=== PATIENT | male | born 1990 | race Caucasian/White ===

== ENCOUNTER → 2017-02-11 | Day surgery (SDC) | payer BC ==
[~2017-02-11] MED LIST: AMOX1TAB61 PO; HYDR-2678 PO; HYDROmorphone 2 MG/ML VIAL IV PRN; IV RINGERS,LACTATED 1000ML 1,000 ML IV SCH; LIDOCAINE 1% PF 2 ML VIAL. ID PRN; LIDOCAINE 2% PF Vial for OR 5 ML VIAL. ONE; MORPHINE SULFATE 2 MG/ML DISP.SYRIN. IV PRN; ONDANSETRON PF 4 MG/2 ML VIAL. IV PRN; PROCHLORPERAZINE 10 MG/2 ML VIAL. IV PRN; PROPOFOL 40 ML IV ONE; fentaNYL PF VIAL 100 MCG/2 ML VIAL IV PRN
[2017-02-11 12:10] VITALS: BP 121/69
--- NOTE | 2017-02-13 14:16 | PATHOLOGY ---
PATHOLOGY REPORT * * * * * * * * FINAL DIAGNOSIS: A. Duodenal biopsies: - Partial villous atrophy with chronic inflammation and focal intraepithelial lymphocytosis. See comment. B. Colon biopsy, sigmoid colon mass: - ADENOCARCINOMA, MODERATELY DIFFERENTIATED. (JPM:mml/lashay; 02/12/2017) COMMENT: Sections of the duodenal biopsy reveal segments of duodenal mucosa showing partial villous atrophy, chronic inflammation, and focal intraepithelial lymphocytosis. The differential diagnosis includes celiac disease, bacterial overgrowth, nonsteroidal anti-inflammatory drug damage, reaction to Helicobacter pylori infection, tropical sprue, and chronic inflammatory bowel disease. Correlate clinically. Sections of the sigmoid colon biopsy focally reveal malignant glands irregularly infiltrating an inflamed reactive desmoplastic stroma. The malignant glands focally have a gland within gland cribriform architecture. The case is also examined by Dr. Tyson, who concurs with the diagnosis. (JPM:lashay; 02/13/2017) REPORT ELECTRONICALLY SIGNED BY: Jose Meneses M.D. DATE/TIME: 02/13/2017 14:16 * * * * * * * * GROSS PATHOLOGY: A. Received in formalin labeled "Adama Wood, duodenal BX r/o celiac ," are 7 segments of trimble soft tissue measuring 1.7 x 1.6 x 0.3 cm in aggregate dimensions and ranging from 0.3 to 0.6 cm in maximum dimension. The specimen is submitted entirely in cassette A1. B. Received in formalin labeled "Adama Wood, sigmoid mass BX," are 8 segments of trimble soft tissue measuring 1.6 x 1.5 x 0.3 cm in aggregate dimensions and ranging from 0.1 to 0.3 cm in maximum dimension. The specimen is submitted entirely in cassette B1. (TSD; 02/11/2017) INITIAL CPT CODE(S): A; 37411 B; 49216 Professional services performed by [facility] at [facility] [address] [place] [address] Technical services performed by [facility] at [address] [place] [address], [address], [place] [address]. SPECIMEN(S) RECEIVED: A.Duodenal biopsy, r/o celiac B.Sigmoid mass biopsy CLINICAL HISTORY: Abdominal pain PATIENT: ADAMA WOOD /AGE: 901/23/1990 (Age: 27) PATIENT #: [id number] [facility] CASE #: SPECIMEN COLLECTION DATE: 02/11/2017 SPECIMEN RECEIVED DATE: 02/11/2017 [facility] - [id number] [place] [address] - PHONE: [phone] * * * END OF REPORT * * *
== END | disposition home or self-care (01) ==
LOC: ENDOS 10:27
PROVIDERS: ATTEND Internal Medicine Gastroenterology
DX: K64.0 First degree hemorrhoids (principal); K31.89 Other diseases of stomach and duodenum; F17.200 Nicotine dependence, unspecified, uncomplicated; J45.909 Unspecified asthma, uncomplicated; Z86.69 Personal history of other diseases of the nervous system and sense organs; Z87.39 Personal history of other diseases of the musculoskeletal system and connective tissue; Z72.0 Tobacco use
CPT/HCPCS: 43239; 45331; 45335; 88305; J2704; J2001

== ENCOUNTER → 2017-02-13 | Outpatient (CLI) | payer BC ==
[2017-02-11 12:10] VITALS: BP 121/69
[~2017-02-13] MED LIST changes: -HYDROmorphone 2 MG/ML VIAL IV PRN; +IOHEXOL 240 MG/ML 50ML VIAL. PO ONE; +IOHEXOL 300 MG/ML 75 ML VIAL IV ONE; -IV RINGERS,LACTATED 1000ML 1,000 ML IV SCH; -LIDOCAINE 1% PF 2 ML VIAL. ID PRN; -LIDOCAINE 2% PF Vial for OR 5 ML VIAL. ONE; -MORPHINE SULFATE 2 MG/ML DISP.SYRIN. IV PRN; -ONDANSETRON PF 4 MG/2 ML VIAL. IV PRN; -PROCHLORPERAZINE 10 MG/2 ML VIAL. IV PRN; -PROPOFOL 40 ML IV ONE; -fentaNYL PF VIAL 100 MCG/2 ML VIAL IV PRN
--- NOTE | 2017-02-13 10:33 | RAD ---
Indication sigmoid colon mass. Axial images through the abdomen and pelvis were obtained. Both IV and oral contrast were administered. 75 cc of Omnipaque 300 was administered intravenously. No prior CT imaging of the abdomen or pelvis is available. The lung bases are clear. There are several hepatic masses, in both lobes of the liver. The largest are in the left lobe and measure approximately 3 cm in greatest dimension. The masses are not simple cysts and, given the history, are most compatible with hepatic metastatic disease. The spleen appears unremarkable and the gallbladder is grossly normal. The pancreas adrenal glands and kidneys appear normal. Significant central or retroperitoneal adenopathy in the abdomen is not seen. In the pelvis there is some thickening of the sigmoid colon extending over approximately a 5-6 cm segment which is compatible with the history provided. There is an0 area of irregularity in the adjacent mesentery probably reflecting adenopathy. IMPRESSION: Thickening of the sigmoid colon compatible with the history provided. Multiple hepatic masses most compatible with hepatic metastatic disease. Probable adenopathy in the pelvic mesentery adjacent to the sigmoid colon. PQRS Compliance Statement: One or more of the following individualized dose reduction techniques were utilized for this examination: 1. Automated exposure control 2. Adjustment of the mA and/or kV according to patient size 3. Use of iterative reconstruction technique
== END | disposition home or self-care (01) ==
LOC: CT 08:27
PROVIDERS: ATTEND Internal Medicine Gastroenterology
DX: K63.9 Disease of intestine, unspecified (principal); R16.0 Hepatomegaly, not elsewhere classified
CPT/HCPCS: 74177; Q9966; Q9967